=== PATIENT | female | born 1950 | race Caucasian/White ===

== ENCOUNTER 2021-06-23 15:45 | Emergency (ER) | payer MEDICARE ==
[~2021-06-23 15:45] MED LIST: ASPIR 8181 MG PO; BACTRIM DS TAB1 EACH PO; CORDARONE 200M200 MG PO; ELIQUIS 5 MG TAB5 MG GT; FLUOXETINE HCL10 MG PO; HYDROXYZINE HCL25 MG PO; LANSOPRAZOLE30 MG PO; LEVAQUIN500 MG PO; LEVOTHYROXINE137 MCG PO; LEVOXYL112 MCG PO; NORCO 10-325 T1 EACH PO; NORCO 7.5-3251 EACH PO; OMEPRAZOLE20 M1 PO; PHENERGAN 25 MG25 M1 PO; PRINIVIL10 MG PO; PRINIVIL20 MG PO; SYMBICORT 160-1 INHA INH; TRICOR48 MG PO; TRIMETHOPRIM100 MG PO; VITAMIN D250000 UNIT PO; Voltaren Gel 1 % TOP; ZANAFLEX4 MG PO; ZANTAC150 MG PO; ZOFRAN4 MG PO
[2021-06-23 16:26] LABS: HEMOGLOBIN 12.4 gm/dl (12.3-15.3); RED BLOOD COUNT 3.96 M/UL (4.00-5.10); WHITE BLOOD COUNT 8.3 K/UL (4.5-11.0)
[2021-06-23 17:00] LABS: BUN/CREATININE RATIO 17 (0-10)
[2021-06-23 18:59] LABS: BORDETELLA PARAPERTUSSIS Not Detected (Not Detectd); BORDETELLA PERTUSSIS Not Detected (Not Detectd); CHLAMYDIA PNEUMONIAE Not Detected (Not Detectd); CORONAVIRUS HKU1 Not Detected (Not Detectd); CORONAVIRUS NL63 Not Detected (Not Detectd); CORONAVIRUS OC43 Not Detected (Not Detectd); CORONOAVIRUS 229E Not Detected (Not Detectd); HUMAN METAPNEUMOVIRUS Not Detected (Not Detectd); HUMAN RHINOVIRUS/ENTEROVIRUS Not Detected (Not Detectd); INFLUENZA A Not Detected (Not Detectd); INFLUENZA B Not Detected (Not Detectd); MYCOPLASMA PNEUMONIAE Not Detected (Not Detectd); PARAINFLUENZA VIRUS 1 Not Detected (Not Detectd); PARAINFLUENZA VIRUS 2 Not Detected (Not Detectd); PARAINFLUENZA VIRUS 3 Not Detected (Not Detectd); PARAINFLUENZA VIRUS 4 Not Detected (Not Detectd); RESPIRATORY SYNCYTIAL VIRUS Not Detected (Not Detectd)
[2021-06-23 20:47] LABS: SARS-CoV-2 DETECTED (Not Detectd)
[2021-06-23] MEDS ORDERED: PROVENTIL HFA6.7 GM INH (20:49)
[2021-06-23] MEDS ORDERED: DOXYCYCLINE HY100 MG PO (20:49)
[2021-06-23] MEDS ORDERED: PREDNISONE 20 M20 MG PO (20:49)
== END 2021-06-23 20:30 | disposition home or self-care (01) ==
LOC: ER1 15:45
PROVIDERS: Emergency Medicine; Physician Assistant
DX: U07.1 COVID-19 (principal); J44.9 Chronic obstructive pulmonary disease, unspecified; I10 Essential (primary) hypertension; Z79.01 Long term (current) use of anticoagulants
CPT/HCPCS: 36600; 71045; 80048; 82550; 82553; 82803; 83874; 84484; 85025; 87081; 87633; 87880; 93005; 94664; 99285; J0696; U0002

== ENCOUNTER → 2021-06-25 | Outpatient (CLI) | payer MEDICARE ==
[~2021-06-25] VITALS: Ht 157.5 cm; Wt 82.6 kg
[~2021-06-25] MED LIST changes: +DOXYCYCLINE HY100 MG PO; +PREDNISONE 20 M20 MG PO; +PROVENTIL HFA6.7 GM INH
== END ==
LOC: EROP 12:40
DX: Z23 Encounter for immunization (principal); U07.1 COVID-19; N18.9 Chronic kidney disease, unspecified
CPT/HCPCS: M0247; Q0247

== ENCOUNTER → 2021-10-23 | Outpatient (CLI) | payer MEDICARE | LOC: KOH-I 11:20 | DX: R91.1 Solitary pulmonary nodule (principal) | CPT/HCPCS: 71250 ==

== ENCOUNTER → 2021-11-11 | Outpatient (CLI) | payer MEDICARE | LOC: HEART 5 13:17 | DX: R91.1 Solitary pulmonary nodule (principal) | CPT/HCPCS: 94060; 94729 ==

== ENCOUNTER → 2021-12-23 | Outpatient (CLI) | payer MEDICARE | LOC: HEART 5 12-16 08:15 | DX: R07.9 Chest pain, unspecified (principal); R53.83 Other fatigue; R06.02 Shortness of breath; I27.20 Pulmonary hypertension, unspecified; I08.1 Rheumatic disorders of both mitral and tricuspid valves | CPT/HCPCS: 78452; 93306; A9502; J2785 ==

== ENCOUNTER 2021-12-27 23:20 | Emergency (ER) | payer MEDICARE ==
[2021-12-28 03:55] LABS: HEMOGLOBIN 12.1 gm/dl (12.3-15.3); RED BLOOD COUNT 3.89 M/UL (4.00-5.10); WHITE BLOOD COUNT 7.4 K/UL (4.5-11.0)
== END 2021-12-28 05:35 | disposition home or self-care (01) ==
LOC: ER1 23:20
PROVIDERS: Emergency Medicine
DX: N18.9 Chronic kidney disease, unspecified (principal); Z20.822 Contact with and (suspected) exposure to COVID-19
CPT/HCPCS: 0240U; 71045; 80053; 81001; 85025; 93005; 99285

== ENCOUNTER 2022-01-31 13:45 | Emergency (ER) | payer MEDICARE ==
[2022-01-31 14:18] LABS: HEMOGLOBIN 12.5 gm/dl (12.3-15.3); RED BLOOD COUNT 4.14 M/UL (4.00-5.10)
== END 2022-01-31 17:43 | disposition home or self-care (01) ==
LOC: ER1 13:45
DX: R07.89 Other chest pain (principal); R06.02 Shortness of breath; I48.91 Unspecified atrial fibrillation; E78.5 Hyperlipidemia, unspecified; I10 Essential (primary) hypertension; Z90.49 Acquired absence of other specified parts of digestive tract; Z90.710 Acquired absence of both cervix and uterus; F17.200 Nicotine dependence, unspecified, uncomplicated
CPT/HCPCS: 71046; 80053; 82550; 82553; 83880; 84484; 85025; 93005; 96374; 99285; J1940